=== PATIENT | male | born 1960 | race Caucasian/White ===

== ENCOUNTER 2018-01-21 06:01 | Day surgery (SDC) | payer BC ==
[2018-01-20 09:45] VITALS: BMI 25.7
[2018-01-21] MEDS ORDERED: Sodium Chloride 0.9% 10 ML ONE (06:33)
[2018-01-21] MEDS ORDERED: CEFAZOLIN/Water 2 GM/20 ML SYRINGE ONE (06:35)
[2018-01-21 06:36] LABS: #Eosinphils 0.1 thou/uL (0.0-0.7); #Lymphocytes 2.6 thou/uL (1.20-3.40); #Monocytes 0.5 thou/uL (0.11-0.59); %Basophils 0.4 % (0.0-1.0); %Eosinophils 0.7 % (0.0-10.0); %Lymphocytes 28.2 % (21.0-51.0); %Monocytes 5.8 % (0.0-10.0); %Neutrophils 64.9 % (42.0-75.0); Hemoglobin 17.1 g/dL (14.0-18.0); Mean Corpuscular HGB CONC 33.6 g/dL (32.0-36.0); Mean Corpuscular Hemoglobin 31.9 pg (27.0-31.0); Mean Corpuscular Volume 94.8 fl (80.0-94.0); Mean Platelet Volume 6.6 fL (7.4-10.4); Platelet Count 200 thou/uL (130-400); RBC Distribution Width 12.2 % (11.5-14.5); Red Blood Cell (RBC) Count 5.36 mill/uL (4.70-6.10); White Blood Cell (WBC) Count 9.3 thou/uL (4.8-10.8)
[2018-01-21 06:53] LABS: Anion Gap 11 mmol/L (10-20); BUN (Urea Nitrogen) 14 mg/dL (8.4-25.7); Calc. Creatinine Clearance 98 mL/min (70-130); Carbon Dioxide 27 mmol/L (22-29); Chloride 106 mmol/L (98-107); Estimated GFR-MDRD 70; Glucose 91 mg/dL (70-105); Potassium 4.1 mmol/L (3.5-5.1); Sodium 140 mmol/L (136-145)
[2018-01-21] MEDS ORDERED: Famotidine/PF 20 mg/2ml Vial ONE (07:05)
[2018-01-21] MEDS ORDERED: Fentanyl 100 MCG/2 ML VIAL ONE (07:05)
--- NOTE | 2018-01-21 10:42 | OP ---
DATE OF PROCEDURE: 01/21/2018 SURGEON: Hector Lam M.D. RN WOMEN SERVICES: [facility] PROCEDURE: Anterior cervical discectomy C5-6 and C6-7, interbody arthrodesis, intravertebral biomech anical device, local morselized autograft, demineralized bone matrix, anterior titanium instrumentati on C5-6 and C6-7. PROCEDURE IN DETAIL: The patient was brought to the operating room and intubated. He was positioned supine in modest extension on a gel-filled donut. Incision was made in the right precervical area a nd dissecting medial to the sternocleidomastoid muscle, and our level was confirmed by x-ray. We elie rided anterior osteophytes, placed distraction across the disc spaces. Using the operating microscop e and microdissection techniques, completely removed the intravertebral discs, decompressing the neur al elements. The bony endplates were then decorticated for the purpose of arthrodesis and appropriat saud sized intravertebral biomechanical PEEK device was brought into the field, filled with deminerali zed bone matrix, local morselized autograft, and tapped into place securely at C5-6 and C6-7. Next, an anterior plate was brought into the field and secured to C5, C6, and C7 using two 14 mm screws at each level. The wound was then extensively irrigated, immaculate hemostasis was secured, and the wou nd was closed in anatomic layers.
== END 2018-01-21 11:52 | disposition home or self-care (01) ==
LOC: EDBD → SDC 06:01
PROVIDERS: ATTEND Neurological Surgery
PROC: 0RT30ZZ Resection of Cervical Vertebral Disc, Open Approach (ICD-10-PCS; principal; 2018-01-21)
PROC: 0RG2070 Fusion of 2 or more Cervical Vertebral Joints with Autologous Tissue Substitute, Anterior Approach, Anterior Column, Open Approach (ICD-10-PCS; principal; 2018-01-21)
PROC: 0RG20A0 Fusion of 2 or more Cervical Vertebral Joints with Interbody Fusion Device, Anterior Approach, Anterior Column, Open Approach (ICD-10-PCS; principal; 2018-01-21)
DX: M54.12 Radiculopathy, cervical region (principal); Z79.899 Other long term (current) drug therapy
CPT/HCPCS: 36415; 76001; 80048; 85025; 93005; 93010; A4216; C1713; C1776; J0131; J3010; J3490; S0028

== ENCOUNTER 2018-02-03 09:18 | Outpatient (CLI) | payer BC ==
--- NOTE | 2018-02-03 11:12 | RAD ---
CERVICAL SPINE 3 VIEWS: HISTORY: A 57-year-old male with a history of neck pain 2 weeks status post surgery. FINDINGS: No prior radiographs available for comparison. Anterior cervical fusion changes at C5, C6, and C7 with intradiskal prosthesis. Minimal prevertebral soft tissue swelling overlying the lower cervical spine which may well be related to some effects fr om the previous surgery. Otherwise, generalized cervical spondylosis. No evidence for acute fractur e or dislocation. IMPRESSION: Anterior cervical fusion changes at C5, C6, and C7 with minimal prevertebral soft tissue swelling, bu t no malalignment. POS: [facility]
== END 2018-02-03 09:19 | disposition home or self-care (01) ==
LOC: TBSIIMAG 09:18
PROVIDERS: ATTEND Physician Assistant
DX: M54.2 Cervicalgia (principal); Z98.1 Arthrodesis status; M79.89 Other specified soft tissue disorders
CPT/HCPCS: 72040